=== PATIENT | male | born 1960 | race African-American/Black ===

== ENCOUNTER 2021-12-20 22:30 | Inpatient (IN) | payer MEDICAID ==
[~2021-12-20] VITALS: Ht 170.2 cm; Wt 67.6 kg
--- NOTE | 2021-12-20 22:31 | NUR ---
BIBA TAKEN TO BED #9
[2021-12-20 22:34] VITALS: BP 180/101
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
--- NOTE | 2021-12-20 23:05 | NUR ---
ER MD AT BEDSIDE EXAMINING PT
--- NOTE | 2021-12-20 23:09 | NUR ---
TANK CAR LOADER AT BEDSIDE
--- NOTE | 2021-12-20 23:10 | NUR ---
PT TAKEN TO CT
[2021-12-20 23:14] LABS: BASOPHILS # (AUTO) 0.1 K/uL (0.00-0.22); BASOPHILS % (AUTO) 0.3 % (0.0-2.0); EOSINOPHILS % (AUTO) 0.3 % (0.0-4.0); HEMATOCRIT 38.3 % (36-52); HEMOGLOBIN 12.3 g/dL (12.0-18.0); LYMPHOCYTES # (AUTO) 1.4 K/uL (2.0-11.5); LYMPHOCYTES % (AUTO) 9.1 % (20.5-51.1); MEAN CORPUSCULAR HEMOGLOBIN 25 pg (27-31); MEAN CORPUSCULAR HGB CONC 32 g/dL (33-37); MEAN CORPUSCULAR VOLUME 78.7 fL (80-94); MONOCYTES # (AUTO) 1.4 K/uL (0.8-1.0); MONOCYTES % (AUTO) 9.2 % (1.7-9.3); NEUTROPHILS # (AUTO) 12.5 K/uL (1.8-7.7); NEUTROPHILS % (AUTO) 81.1 % (42.2-75.2); PLATELET COUNT (AUTO) 206 K/uL (140-450); RED BLOOD CELL COUNT(AUTO) 4.86 MIL/uL (4.20-6.10); RED CELL DISTRIBUTION WIDTH 16.5 % (11.6-13.7); WHITE BLOOD COUNT (AUTO) 15.4 K/uL (4.8-10.8)
[2021-12-20 23:41] LABS: CHLORIDE 106 mmol/L (98-107); POTASSIUM 4.7 mmol/L (3.5-5.1); SODIUM SERUM 144 mmol/L (136-145)
[2021-12-20 23:57] LABS: ALBUMIN 4.1 g/dL (3.4-5.0); ANION GAP 15.9 (8-16); ASPARTATE AMINOTRANSFERASE 41 U/L (15-37); CARBON DIOXIDE 27.8 mmol/L (21-32); CREATININE 1.8 mg/dL (0.6-1.3); GFR ARICAN-AMERICAN 49 mL/min (>90); GLUCOSE 159 mg/dL (74-106); TOTAL BILIRUBIN 0.8 mg/dL (0.0-1.0); UREA NITROGEN, BLOOD 43 mg/dL (7-18)
[2021-12-21] MEDS ORDERED: NACL 0.9% 1,000 ML IV ONE ×2 (00:25→01:00)
[2021-12-21] MEDS ORDERED: PIPERACILLIN/TAZOBACTAM 3.375 GM in DEXTROSE 5% 50 ML IV ONE (01:00)
[2021-12-21] MEDS ORDERED: VANCOMYCIN 1,000 MG in DEXTROSE 5% 250 ML IV ONE (01:00)
--- NOTE | 2021-12-21 01:17 | NUR ---
PUT ON CONDOM CATHETER AND SWABBED FOR RAYO COVID. TAKEN TO LAB
[2021-12-21] MEDS ORDERED: PIPERACILLIN/TAZOBACTAM 3.375 GM VIAL IV ONE (01:22)
--- NOTE | 2021-12-21 01:39 | NUR ---
PT REFUSES TO TALK AND ONLY NODS HIS HEAD WHEN SPOKEN TO. IT IS UNCLEAR IF PT IS REFUSING TO TALK OR IS UNABLE TO COMPREHEND. UNABLE TO OBTAIN ACCURATE MED REC. PT IS SITTING QUIETLY IN BED WITH IV FLUIDS RUNNING AT THIS TIME.
[2021-12-21] MEDS ORDERED: VANCOMYCIN 1,000 MG VIAL ONE (01:42)
--- NOTE | 2021-12-21 02:03 | NUR ---
UNIX MANAGER AT BEDSIDE DRAWING BLOOD
[2021-12-21 02:25] VITALS: BP 179/81
[2021-12-21] MEDS ORDERED: hydrALAZINE 20 MG/ML VIAL IVP ONE (02:30)
--- NOTE | 2021-12-21 02:30 | NUR ---
RECEIVED BEDSIDE ENDORSEMENT FROM ER NURSE JADIEL. PT AWAKE, NON VERBAL. ABLE TO NOD WHEN ASKED SOME QUESTIONS. ON ROOM AIR, BREATHING EQUAL AND UNLABORED. NO RESPIRATORY DISTRESS NOTED. IV ON L HAND G 22, INFUSING VANCOMYCIN. SR 87 ON TELE . MRSA SWAB DONE. PT CLEANED AND CHANGED. FALL PRECAUTIONS IN PLACE.CALL LIGHT WITHIN REACH. WILL CONTINUE TO MONITOR.
--- NOTE | 2021-12-21 03:00 | NUR ---
Patient will be admitted to care of DR ORO. Admited to TELE. Will go to room 112A. Belongings list completed. Report to FREDERIC CHAO.
--- NOTE | 2021-12-21 03:10 | NUR ---
BP WAS 179/81. PRN HYDRALAZINE 10MG GIVEN. WILL CONTINUE TO MONITOR.
[2021-12-21] MEDS ORDERED: hydrALAZINE 20 MG/ML VIAL IVP PRN (03:30)
[2021-12-21] MEDS ORDERED: ACETAMINOPHEN 325 MG TAB PO PRN (03:45)
[2021-12-21] MEDS ORDERED: ONDANSETRON 4 MG/2 ML VIAL IVP PRN (03:45)
[2021-12-21] MEDS ORDERED: amLODIPine 5 MG TAB PO SCH ×2 (03:50→09:00)
[2021-12-21] MEDS: NACL 0.9% 1,000 ML IV SCH ×2 (04:13→16:47)
--- NOTE | 2021-12-21 05:35 | NUR ---
PT VOMITING.PRN ZOFRAN GIVEN. NO ACUTE DRUG REACTION NOTED. PT TOLERATED WELL. WILL CONTINUE TO MONITOR.
--- NOTE | 2021-12-21 06:46 | NUR ---
PT IS STABLE. NO ACUTE EVENTS THROUGHOUT THE NIGHT. ALL NEEDS MET.NO S/SX OF DISTRESS NOTED.DENIES PAIN. ALL PRECAUTIONS IN PLACE. CALL LIGHT WITHIN REACH. WILL ENDORSE TO AM SHIFT NURSE.
--- NOTE | 2021-12-21 07:30 | NUR ---
RECEIVED BEDSIDE REPORT FROM SALVATIONIST NURSE FOR CONTINUOUS OF CARE, PT AWAKE ALERT, DELAYED IN SPEECH, PT ON ROOM AIR, NO SOB NOTED, IV TO LEFT HAND 22G PATENT INTACT, INFUSING NS @ 70ML/HR, INFUSING WELL, INITIAL ASSESSMENT DONE, ALL SAFETY PRECAUTION MET, CALL LIGHT WITHIN REACH, WILL CONTINUE TO MONITOR.
[2021-12-21 08:00] VITALS: BP 105/69
[2021-12-21] MEDS ORDERED: HYDROcodone/APAP 7.5/325 MG 1 TAB PO PRN (08:15)
[2021-12-21] MEDS ORDERED: DOCUSATE SODIUM 100 MG GELCAP PO PRN (08:15)
[2021-12-21] MEDS ORDERED: guaiFENesin DM 200/20 MG-10 ML 10 ML UDC PO PRN (08:15)
[2021-12-21] MEDS ORDERED: POTASSIUM CHLORIDE 10 MEQ TABER PO PRN (08:15)
[2021-12-21] MEDS ORDERED: ZOLPIDEM 5 MG TAB PO PRN (08:15)
[2021-12-21] MEDS ORDERED: MECLIZINE 25 MG TAB PO PRN (08:20)
--- NOTE | 2021-12-21 08:54 | NUR ---
PATIENT HAS BEEN SCREENED AND CATEGORIZED LOW NUTRITION RISK. PATIENT WILL BE SEEN WITHIN 7 DAYS OF ADMISSION. 12/27/[address]
[2021-12-21] MEDS ORDERED: DEXTROSE 50% 50 ML SYR IVP PRN ×2 (09:05→09:10)
[2021-12-21] MEDS: NIFEdipine 30 MG TABER PO SCH (09:05)
[2021-12-21] MEDS ORDERED: INSULIN LISPRO SLIDING SCALE 100 UNITS/ML VIAL SUBQ PRN (09:05)
[2021-12-21] MEDS ORDERED: ONDANSETRON 4 MG/2 ML VIAL IM/IVP PRN (09:15)
[2021-12-21] MEDS: METOPROLOL 25 MG TAB PO SCH ×2 (09:15→18:38)
[2021-12-21] MEDS: PANTOPRAZOLE 40 MG TABEC PO SCH (09:18)
--- NOTE | 2021-12-21 09:18 | NUR ---
DUE MEDICATIONS ADMINISTERED, PT BP CURRENTLY 105/69, WILL HOLD BP MEDICATIONS FOR NOW. WILL CONTINUE TO MONITOR.
[2021-12-21 09:40] LABS: PROTHROMBIN TIME 10.1 secs (10.8-13.4)
[2021-12-21 09:56] LABS: CHOL/HDL RATIO 2.8 (1-4.5); FREE T4 (FREE THYROXINE) 1.03 ng/dL (0.76-1.46); MAGNESIUM 2.1 mg/dL (1.8-2.4); PHOSPHORUS 3.7 mg/dL (2.5-4.9); THYROID STIMULATING HORMONE 0.95 uIU/mL (0.34-3.74)
[2021-12-21 10:17] LABS: APPEARANCE,URINE CLEAR (CLEAR); BILIRUBIN,URINE NEGATIVE (NEGATIVE); BLOOD, URINE 1+ (NEGATIVE); COLOR,URINE YELLOW (YELLOW); LEUKOCYTE ESTERASE ,URINE TRACE (NEGATIVE); NITRITE, URINE POSITIVE (NEGATIVE); UGLUCOSE TRACE (NEGATIVE)
[2021-12-21 10:32] LABS: BARBITURATE, URINE NEGATIVE ng/ml (NEG <=200)
[2021-12-21 10:33] LABS: BENZODIAZEPINE, URINE NEGATIVE ng/mL (NEG <=200); CANNABINOID, URINE NEGATIVE ng/mL (NEG <=50); COCAINE, URINE NEGATIVE ng/mL (NEG <=300); OPIATE, URINE NEGATIVE ng/mL (NEG <=2000); PHENCYCLIDINE SCREEN,URINE NEGATIVE ng/mL (NEG <=25)
[2021-12-21 10:49] LABS: RBC,URINE 0-5 /HPF (0-5); WBC,URINE 0-5 /HPF (0-5)
[2021-12-21 10:50] LABS: OTHER CASTS, URINE None Seen /LPF (None Seen)
--- NOTE | 2021-12-21 11:00 | NUR ---
SCREEN FOR LOW MILADY SCALE AT RISK, CONTINUE TO FOLLOW PRESSURE ULCER PREVENTION INTERVENTIONS. -TURN AND REPOSITION PATIENT Q 2H, ASSIST IF NEEDED -ASSESS AND MONITOR SKIN CONDITION DURING POSITION CHANGES -OFFLOAD BILATERAL HEELS BY PLACING PILLOWS UNDER CALVES AT ALL TIMES, UNLESS OTHERWISE CONTRAINDICATED -PRESSURE REDISTRIBUTION BY PLACING PILLOWS AND OFFLOADING SACRALCOCCYX -KEEP SKIN CLEAN AND DRY AT ALL TIMES.
[2021-12-21] MEDS ORDERED: BLOOD GLUCOSE MONITORING 1 DEV DEV FS SCH (11:30)
[2021-12-21] MEDS: BLOOD GLUCOSE MONITORING 1 DEV DEV FS SCH ×3 (11:36→21:00)
[2021-12-21] MEDS: INSULIN LISPRO SLIDING SCALE 100 UNITS/ML VIAL SUBQ PRN ×3 (11:38→22:07)
[2021-12-21 12:00] VITALS: BP 175/99
[2021-12-21] MEDS: hydrALAZINE 20 MG/ML VIAL IVP PRN (12:32)
--- NOTE | 2021-12-21 12:32 | NUR ---
PT BP 175/99, PRN HYDRALAZINE GIVEN PER DR ORDERS, WILL CONTINUE TO MONITOR.
--- NOTE | 2021-12-21 15:27 | NUR ---
DC PLANNING: THE PATIENT WAS BIBA AFTER HAVING A WITNESSED FALL. PATIENT IS EASILY DISTRACTED, DIFFICULT TO OBTAIN HISTORY, ORIENTED TO PERSON AND PLACE. H/O HTN, DM AND CVA. WBC'S 15.4, CXR SHOWS LEFT BASILAR ATELECTASIS, B/P 180/101, GIVEN HYDRALAZINE. BUN 43, CR 1.8, GIVEN NS BOLUS AND STARTED ON ROCEPHIN IV AND IVF'S. CM AND SW SPOKE WITH THE PATIENTS MOTHER AT BEDSIDE. THE PATIENT HAS BEEN MISSING FOR THREE DAYS, WAS STAYING WITH A CAREGIVER WHILE HIS MOTHER WENT TO A WORKSHOP IN [place] AND LEFT THE HOUSE. HE WAS ABLE TO TAKE A BUS BUT IT IS UNCLEAR WHERE HE GOT OFF. THE POLICE HAVE BEEN LOOKING FOR HIM SINCE TUESDAY WHICH IS HOW HIS MOTHER FOUND HIM HERE. HIS MOTHER IS JEAN ROBERTO, HOME PHONE [phone], CELL PHONE [phone]. THE PATIENT LIVES WITH HER IN A SINGLE STORY HOUSE IN [place] AND SHE IS HIS IHSS WORKER WITH 128 HRS/MONTH. SHE HAS A FRIEND WHO ASSISTS HER NEEDED, THE PATIENT WAS STAYING WITH HER WHEN HE LEFT [place]. 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 HE WAS TREATED FOR THIS AT [facility] IN [place]. HE IS A ABLE TO WALK, SLOWLY, AND IS INDEPENDENT WITH ADL'S AND EATING. HE IS ACTIVE AND ASSISTS HIS MOTHER WITH SOME CHORES. HE IS VERBAL BUT DOES NOT TALK A LOT. HE IS DIABETIC AND HAS A GLUCOMETER, HIS MOTHER GIVES HIS INSULIN AND HE TAKES PO MEDICATIONS WELL. HE ALSO HAS A FWW BUT DOES NOT USE IT REGULARLY. HE SEES HIS PMD REGULARLY AND HAS BEEN REFERRED TO A IMPLEMENTATION PROJECT MANAGER FOR [facility] BY HIS PMD. HIS MOTHER WILL TRANSPORT HIM HOME WHEN HE IS CLINICALLY STABLE, NO DC NEEDS IDENTIFIED. CM WILL FOLLOW.
[2021-12-21 16:00] VITALS: BP 181/88
[2021-12-21 16:32] LABS: BARBITURATE, URINE NEGATIVE ng/ml (NEG <=200); BENZODIAZEPINE, URINE NEGATIVE ng/mL (NEG <=200); CANNABINOID, URINE NEGATIVE ng/mL (NEG <=50); COCAINE, URINE NEGATIVE ng/mL (NEG <=300); OPIATE, URINE NEGATIVE ng/mL (NEG <=2000); PHENCYCLIDINE SCREEN,URINE NEGATIVE ng/mL (NEG <=25)
--- NOTE | 2021-12-21 16:57 | NUR ---
NOTIFY DR SIGALA PT BP IS HIGH 182/76, PRN MEDICATION IS NOT DUE YET, HYDRALAZINE 10MG. PER DR SIGALA TO ORDER HYDRALAZINE IVP 10MG, TO GIVE ONE TIME RIGHT NOW. WILL CONTINUE WITH ORDERS.
[2021-12-21] MEDS ORDERED: hydrALAZINE 20 MG/ML VIAL IVP SCH (17:00)
--- NOTE | 2021-12-21 17:47 | NUR ---
P.T. NOTES P.T. EVAL COMPLETED; REFER TO EVAL FOR DETAILS.
[2021-12-21] MEDS: hydrALAZINE 10 MG TAB PO SCH (18:38)
--- NOTE | 2021-12-21 18:38 | NUR ---
NOTIFIED DR SIGALA REGARDING PT BP STILL HIGH IN 180S, LAST ONE WAS 188/88, PER DR SIGALA TO ORDER HYDRALAZINE TID 10MG PO AND ALSO GIVE PT NIGHT MEDICATION METOPROLOL EARLY. WILL CONTINUE WITH ORDERS.
--- NOTE | 2021-12-21 19:19 | NUR ---
ENDORSED PT TO SALES AND MARKETING MANAGER NURSE FOR CONTINUOUS OF CARE.
--- NOTE | 2021-12-21 19:30 | NUR ---
RECEIVED BEDSIDE REPORT FROM DAY SHIFT RN FOR CONTINUITY OF CARE. PT IS AWAKE WITH MOM BY BEDSIDE. PT IS ON RA NOT IN ANY DISTRESS. PT HAS HAND 22 GAUGE WITH NS 50 CC/HR. CALL LIGHT WITHIN REACH. ALL SAFETY MEASURES TAKEN. WILL CONTINUE TO MONITOR THE PT.
[2021-12-21 20:00] VITALS: BP 145/81
--- NOTE | 2021-12-21 21:35 | NUR ---
PT IS SLEEPING IN BED COMFORTABLY. PT IS NOT IN ANY ACUTE DISTRESS. BREATHING EVEN AND UNLABORED. IVF RUNNING PER MD ORDER. CALL LIGHT WITHIN REACH. ALL SAFETY MEASURES TAKEN. WILL CONTINUE TO MONITOR THE PT.
[2021-12-22] VITALS: BP 168/82
[2021-12-22] MEDS: hydrALAZINE 20 MG/ML VIAL IVP PRN (01:34)
--- NOTE | 2021-12-22 02:37 | NUR ---
PT WAS GIVEN HYDRALAZINE FOR HIGH BLOOD PRESSURE OF 181/102 WITH HR OF 84. REASSESSED BP AND WENT DOWN TO 158/95. HR 89. WILL CONTINUE TO MONITOR THE PT.
[2021-12-22 04:00] VITALS: BP 158/80
--- NOTE | 2021-12-22 04:00 | NUR ---
PT CURRENT BLOOD PRESSURE IS 158/80, HR OF 89. PT IS NOT IN ANY DISTRESS. BREATHING EVEN AND UNLABORED. IVF RUNNING PER MD ORDER. CALL LIGHT WITHIN REACH. WILL CONTINUE TO MONITOR THE PT.
[2021-12-22] MEDS: INSULIN LISPRO SLIDING SCALE 100 UNITS/ML VIAL SUBQ PRN ×3 (06:32→20:23)
[2021-12-22] MEDS: BLOOD GLUCOSE MONITORING 1 DEV DEV FS SCH ×4 (06:32→20:22)
[2021-12-22] MEDS: NIFEdipine 30 MG TABER PO SCH (06:45)
[2021-12-22] MEDS: METOPROLOL 25 MG TAB PO SCH (06:46)
[2021-12-22] MEDS: hydrALAZINE 10 MG TAB PO SCH ×3 (06:46→17:05)
[2021-12-22 06:48] LABS: BASOPHILS % (AUTO) 0.2 % (0.0-2.0); EOSINOPHILS % (AUTO) 0.1 % (0.0-4.0); HEMATOCRIT 37.8 % (36-52); HEMOGLOBIN 12.4 g/dL (12.0-18.0); LYMPHOCYTES % (AUTO) 14.8 % (20.5-51.1); MEAN CORPUSCULAR HEMOGLOBIN 26 pg (27-31); MEAN CORPUSCULAR HGB CONC 33 g/dL (33-37); MEAN CORPUSCULAR VOLUME 78.3 fL (80-94); MONOCYTES # (AUTO) 0.9 K/uL (0.8-1.0); MONOCYTES % (AUTO) 6.8 % (1.7-9.3); NEUTROPHILS # (AUTO) 10.5 K/uL (1.8-7.7); NEUTROPHILS % (AUTO) 78.1 % (42.2-75.2); PLATELET COUNT (AUTO) 196 K/uL (140-450); RED BLOOD CELL COUNT(AUTO) 4.83 MIL/uL (4.20-6.10); RED CELL DISTRIBUTION WIDTH 16.2 % (11.6-13.7); WHITE BLOOD COUNT (AUTO) 13.4 K/uL (4.8-10.8)
--- NOTE | 2021-12-22 06:49 | NUR ---
PT BLOOD PRESSURE WAS GOING UP AGAIN TO 180'S. MESSAGED DR. SIGALA. DOCTOR SAID TO GIVE MORNING BP MEDICATIONS. ALL MORNING BP MEDICATIONS WERE GIVEN. WILL CONTINUE TO MONITOR THE PT.
[2021-12-22 06:57] LABS: ANION GAP 11.3 (8-16); CARBON DIOXIDE 28.4 mmol/L (21-32); CREATININE 1.3 mg/dL (0.6-1.3); POTASSIUM 3.7 mmol/L (3.5-5.1)
[2021-12-22 07:08] LABS: T4 (THYROXINE) 7.5 ug/dL (4.5-12.0)
--- NOTE | 2021-12-22 07:10 | NUR ---
RECEIVED REPORT FROM CHANGE MANAGEMENT SPECIALIST NURSE FOR CONTINUITY OF CARE. PT ASLEEP IN BED BUT EASILY AROUSABLE AND AWAKEN, A/OX1. BREATHING SYMMETRICAL ON ROOM AIR. PER REPORT PT UNABLE TO AMBULATE BY HIMSELF AND WITH EPISODES OF COUGH. AM BP MEDS WERE GIVEN ALREADY BY CHANGE MANAGEMENT SPECIALIST NURSE DUE TO ELEVATED BP. PER REPORT BP TENDS TO BE HIGH. FLACC O. LEFT HAND 22G WITH NS AT 50CC/HR. CALL LIGHT WITHIN REACH. BED ON LOW POSITION, BRAKES ON. ALL SAFETY MEASURES IN PLACE.
--- NOTE | 2021-12-22 07:21 | NUR ---
ENDORSED PT TO DAY SHIFT RN FOR CONTINUITY OF CARE. PT IS STABLE.
[2021-12-22 08:00] VITALS: BP 117/57
[2021-12-22] MEDS: PANTOPRAZOLE 40 MG TABEC PO SCH (08:33)
--- NOTE | 2021-12-22 08:33 | NUR ---
SCHEDULED AM MEDICATION GIVEN ORDERED.
--- NOTE | 2021-12-22 10:22 | NUR ---
PT GETTING ECHO DONE AT BEDSIDE
--- NOTE | 2021-12-22 11:53 | NUR ---
ACCUCHECK DONE, INSULIN GIVEN PER SLIDING SCALE. PT ALSO SEEN BY DR NICOLE (SALES FLOOR ASSOCIATE). PT ABLE TO ANSWER SOME QUESTIONS, PT NOT CONVERSING JUST MOSTLY NODDING AND ANSWERS WITH ONE WORD.
[2021-12-22 12:00] VITALS: BP 129/87
--- NOTE | 2021-12-22 14:35 | NUR ---
PATIENT WALKING AROUND THE HALLWAY USING WALKER WITH PHYSICAL THERAPIST.
--- NOTE | 2021-12-22 14:41 | NUR ---
PT'S MOM AT BEDSIDE VISITING.
--- NOTE | 2021-12-22 15:23 | NUR ---
PT TRANSFERRED TO [facility]
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
[2021-12-22 16:00] VITALS: BP 122/77
--- NOTE | 2021-12-22 16:25 | NUR ---
PHYSICAL THERAPY CO-SIGN The Physical Therapy Progress Notes documented by Handy Man have been reviewed. Reviewed/Co-Signed by: Ivory Orta Documentation Done by: DANY BERNAL PTA Addendum: 12/22/21 at 1625 by Ivory Orta PT Amended: Links added.
--- NOTE | 2021-12-22 17:00 | NUR ---
NOTED PT WITH ELEVATED TEMP, PRN TYLENOL GIVEN AND ICE PACKS APPLIED. MOM AT BEDSIDE AND AWARE, WILL CONTINUE TO MONITOR
[2021-12-22] MEDS: ACETAMINOPHEN 325 MG TAB PO PRN (17:05)
--- NOTE | 2021-12-22 17:55 | NUR ---
RE-ASSESSED PT'S TEMP WENT DOWN TO 99.5 WILL CONTINUE TO PROVIDE ICE PACKS AND COOLING MEASURES
--- NOTE | 2021-12-22 18:38 | NUR ---
PT'S TEMP WENT DOWN TO 98.8, MOM STILL AT BEDSIDE AND AWARE. PT ATE 100% OF DINNER SERVED. DENIES PAIN
--- NOTE | 2021-12-22 19:32 | NUR ---
ENDORSED PT TO SWIMMING INSTRUCTOR NURSE, IN STABLE CONDITION
[2021-12-22] MEDS: METOPROLOL 50 MG TAB PO SCH (20:16)
--- NOTE | 2021-12-22 20:16 | NUR ---
ADMINISTERED SCHEDULED MEDICATION. WELL TOLERATED.
--- NOTE | 2021-12-22 20:22 | NUR ---
BLOOD SUGAR WAS 191, ADMINISTERED HUMALOG INSULIN ORDERED PER SLIDING SCALE.
[2021-12-23] VITALS: BP 142/70
--- NOTE | 2021-12-23 02:27 | NUR ---
MADE ROUNDS. PT ASLEEP. NO SOB NOTED. CALL LIGHT WITHIN REACH.
[2021-12-23] MEDS: BLOOD GLUCOSE MONITORING 1 DEV DEV FS SCH ×4 (06:33→20:30)
[2021-12-23] MEDS: INSULIN LISPRO SLIDING SCALE 100 UNITS/ML VIAL SUBQ PRN (06:34)
[2021-12-23 07:06] LABS: ANION GAP 9.9 (8-16); CREATININE 1.3 mg/dL (0.6-1.3); POTASSIUM 3.9 mmol/L (3.5-5.1)
[2021-12-23 07:08] LABS: BASOPHILS % (AUTO) 0.2 % (0.0-2.0); EOSINOPHILS % (AUTO) 0.3 % (0.0-4.0); HEMATOCRIT 38.8 % (36-52); HEMOGLOBIN 12.9 g/dL (12.0-18.0); LYMPHOCYTES % (AUTO) 23.3 % (20.5-51.1); MEAN CORPUSCULAR HEMOGLOBIN 26 pg (27-31); MEAN CORPUSCULAR HGB CONC 33 g/dL (33-37); MEAN CORPUSCULAR VOLUME 77.8 fL (80-94); MONOCYTES # (AUTO) 0.8 K/uL (0.8-1.0); MONOCYTES % (AUTO) 9.5 % (1.7-9.3); NEUTROPHILS # (AUTO) 5.7 K/uL (1.8-7.7); NEUTROPHILS % (AUTO) 66.7 % (42.2-75.2); PLATELET COUNT (AUTO) 203 K/uL (140-450); RED BLOOD CELL COUNT(AUTO) 4.99 MIL/uL (4.20-6.10); RED CELL DISTRIBUTION WIDTH 15.9 % (11.6-13.7); WHITE BLOOD COUNT (AUTO) 8.6 K/uL (4.8-10.8)
--- NOTE | 2021-12-23 07:10 | NUR ---
PATIENT IS STABLE. ENDORSED TO AM NURSE FOR CONTINUITY OF CARE.
--- NOTE | 2021-12-23 07:15 | NUR ---
RECEIVED REPORT FROM BOAT CANVAS INSTALLER NURSE FOR CONTINUITY OF CARE. PT ASLEEP IN BED. BREATHING SYMMETRICAL ON ROOM AIR. FLACC O. PER REPORT NO FEVER DURING THE NIGHT. LEFT HAND 22G ON SALINE LOCK. CALL LIGHT WITHIN REACH. ALL SAFETY MEASURES IN PLACE.
[2021-12-23 08:00] VITALS: BP 192/93
--- NOTE | 2021-12-23 08:00 | NUR ---
NOTED PT'S BP ELEVATED 192/93, ALSO TEMP IS 100. DR ISLAS DOING ROUNDS AND MADE AWARE. SCHEDULED AM BP MEDS GIVEN, PRN TYLENOL ALSO GIVEN. ICE PACKS APPLIED AND ORAL FLUIDS GIVEN AND ENCOURAGED. PT DENIES PAIN. WILL CONTINUE TO MONITOR.
[2021-12-23] MEDS: PANTOPRAZOLE 40 MG TABEC PO SCH (08:27)
[2021-12-23] MEDS: ACETAMINOPHEN 325 MG TAB PO PRN (08:27)
[2021-12-23] MEDS: hydrALAZINE 10 MG TAB PO SCH (08:27)
[2021-12-23] MEDS: METOPROLOL 50 MG TAB PO SCH ×2 (08:27→20:30)
[2021-12-23] MEDS ORDERED: NIFEdipine 60 MG TABER PO SCH (09:00)
--- NOTE | 2021-12-23 09:00 | NUR ---
PT'S BLOOD PRESSURE WENT DOWN TO 113/64. PT DENIES ANY PAIN. WILL CONTINUE TO MONITOR
--- NOTE | 2021-12-23 10:04 | NUR ---
PHYSICAL THERAPY CO-SIGN The Physical Therapy Progress Notes documented by Conservation Enforcement Officer have been reviewed. Reviewed/Co-Signed by: Ivory Orta Documentation Done by: DANY BERNAL PTA Addendum: 12/23/21 at 1004 by Ivory Orta PT Amended: Links added.
--- NOTE | 2021-12-23 10:15 | NUR ---
RE-ASSESSED PT'S TEMPERATURE WENT DOWN TO 98.8. PT'S MOM JEAN ALSO CALLED AND MADE AWARE. ENCOURAGED ORAL FLUID INTAKE. CONTINUES TO DENY PAIN. WILL CONTINUE TO MONITOR
--- NOTE | 2021-12-23 12:00 | NUR ---
PT REFUSED SLIDING SCALE INSULIN COVERAGE, PT'S BLOOD SUGAR IS 256 WITH 6U COVERAGE. EXPLAINED RISKS AND BENEFITS BUT STILL REFUSED
--- NOTE | 2021-12-23 12:30 | NUR ---
ASSISTED PT WITH LUNCH. DENIES PAIN. ENCOURAGED TO CALL FOR ASSISTANCE.
--- NOTE | 2021-12-23 15:55 | NUR ---
PT ASLEEP IN BED. BREATHING SYMMETRICAL ON ROOM AIR. FLACC O. CALL LIGHT WITHIN REACH.
[2021-12-23 16:00] VITALS: BP 149/89
--- NOTE | 2021-12-23 18:43 | NUR ---
PT TRANSFERRED TO TELEMETRY
--- NOTE | 2021-12-23 19:30 | NUR ---
ENDORSED PT TO SIDE STITCHING MACHINE OPERATOR NURSE FOR CONTINUITY OF CARE.
--- NOTE | 2021-12-23 19:42 | NUR ---
RECEIVED BEDSIDE REPORT FROM AM SHIFT NURSE FOR CONTINUITY OF CARE. PT AWAKE, ALERT.DELAYED IN SPEECH. PT ON ROOM AIR, NO RESPIRATORY DISTRESS NOTED, IV TO LEFT HAND 22G ON SL. ALL SAFETY PRECAUTIONS IN PLACE, CALL LIGHT WITHIN REACH, WILL CONTINUE TO MONITOR.
[2021-12-23 20:00] VITALS: BP 152/74
--- NOTE | 2021-12-23 20:45 | NUR ---
PT TRYING TO GET OUT OF BED AND WANTS TO GO HOME. HE IS REMOVING HIS CLOTHES AND TELE MONITOR.PT SPOKE TO MOM AND STILL INSISTING T GO HOME AND TRYING TO GET OUT OF BED.INFORMED AND ORDERED 5MG HALDOL IM ONCE.
--- NOTE | 2021-12-23 20:50 | NUR ---
HALDOL IM ON HOLD PT CALMED DOWN ALREADY AND RESTING ON BED.
--- NOTE | 2021-12-23 21:00 | NUR ---
SCHEDULED MEDICATIONS GIVEN.BLOOD SUGAR WAS 178.PT REFUSED INSULIN COVERAGE. WILL TRY TO GIVE AGAIN LATER.
[2021-12-24] VITALS: BP 146/66
--- NOTE | 2021-12-24 02:45 | NUR ---
PT RESTING IN BED COMFORTABLY. PT IS NOT IN ANY ACUTE DISTRESS. BREATHING EVEN AND UNLABORED.BP CHECKED IT WAS 146/66. CALL LIGHT WITHIN REACH. ALL SAFETY MEASURES TAKEN. WILL CONTINUE TO MONITOR THE PT.
[2021-12-24 04:00] VITALS: BP 165/75
[2021-12-24] MEDS: hydrALAZINE 20 MG/ML VIAL IVP PRN ×2 (04:18→08:38)
--- NOTE | 2021-12-24 04:30 | NUR ---
PT'S BP 175/75. PRN BP MEDICATION GIVEN. WILL REASSESS AFTER 1 HOUR.
--- NOTE | 2021-12-24 05:29 | NUR ---
REASSESSED PT'S BP. WENT DOWN TO 152/58. ALL PRECAUTIONS IN PLACE. WILL CONTINUE TO MONITOR.
[2021-12-24] MEDS: BLOOD GLUCOSE MONITORING 1 DEV DEV FS SCH ×2 (06:24→11:33)
[2021-12-24 06:53] LABS: ANION GAP 12.7 (8-16); CREATININE 1.3 mg/dL (0.6-1.3); POTASSIUM 3.7 mmol/L (3.5-5.1)
[2021-12-24 07:12] LABS: BASOPHILS % (AUTO) 0.3 % (0.0-2.0); EOSINOPHILS # (AUTO) 0.1 K/uL (0-0.4); EOSINOPHILS % (AUTO) 0.6 % (0.0-4.0); HEMATOCRIT 38.9 % (36-52); HEMOGLOBIN 12.8 g/dL (12.0-18.0); LYMPHOCYTES # (AUTO) 2.7 K/uL (2.0-11.5); LYMPHOCYTES % (AUTO) 26.4 % (20.5-51.1); MEAN CORPUSCULAR HEMOGLOBIN 26 pg (27-31); MEAN CORPUSCULAR HGB CONC 33 g/dL (33-37); MEAN CORPUSCULAR VOLUME 77.6 fL (80-94); MONOCYTES # (AUTO) 0.9 K/uL (0.8-1.0); MONOCYTES % (AUTO) 8.8 % (1.7-9.3); NEUTROPHILS # (AUTO) 6.6 K/uL (1.8-7.7); NEUTROPHILS % (AUTO) 63.9 % (42.2-75.2); PLATELET COUNT (AUTO) 214 K/uL (140-450); RED BLOOD CELL COUNT(AUTO) 5.02 MIL/uL (4.20-6.10); RED CELL DISTRIBUTION WIDTH 15.5 % (11.6-13.7); WHITE BLOOD COUNT (AUTO) 10.4 K/uL (4.8-10.8)
--- NOTE | 2021-12-24 07:15 | NUR ---
RECEIVED REPORT FROM MORNING SHIFT NURSE FOR CONTINUITY OF CARE. PT IS SLEEPING, EASILY AROUSABLE BY VERBAL STIMULI. BREATHING EVEN AND UNLABORED AT ROOM AIR. PT ON TELE MONITOR. IV SITE AT LEFT HAND 22G, SALINE LOCK. SKIN IS INTACT, WARM AND DRY TO TOUCH. CALL LIGHT WITHIN REACH. SAFETY MEASURES IN PLACE. WILL CONTINUE TO MONITOR.
[2021-12-24] MEDS ORDERED: AZITHROMYCIN 250 MG TAB PO SCH (07:45)
[2021-12-24 08:00] VITALS: BP 170/78
--- NOTE | 2021-12-24 08:00 | NUR ---
PT IN THE ROOM RESTING, COVERING MOP MAN ERIKA FOR IV MEDS.[id number]
[2021-12-24] MEDS: PANTOPRAZOLE 40 MG TABEC PO SCH (08:23)
[2021-12-24] MEDS: METOPROLOL 50 MG TAB PO SCH (08:23)
--- NOTE | 2021-12-24 08:30 | NUR ---
ADMINISTERED SCHEDULED MORNING MEDS. EXPLAIN MEDS TO PT. PT VERBALIZED UNDERSTANDING. PT SBP IS AT 170'S. INFORMED RN. RN WILL ADMINISTER PRN BP MED ORDERED.
[2021-12-24] MEDS ORDERED: NIFEdipine 60 MG TABER PO SCH (09:00)
--- NOTE | 2021-12-24 09:38 | NUR ---
REASSESSED V/S BP 131/67, 73BPM. PT LYING IN BED. NO SIGNS OF DISTRESS NOTED. NO ADVERSE REACTION TO MEDS. CALL LIGHT WITHIN REACH. SAFETY MEASURES IN PLACE. WILL CONTINUE TO MONITOR.
--- NOTE | 2021-12-24 10:57 | NUR ---
DOWNGRADED TO MS. CONTINUE BP CHECK EVERY 4HRS.
[2021-12-24] MEDS: INSULIN LISPRO SLIDING SCALE 100 UNITS/ML VIAL SUBQ PRN (11:33)
--- NOTE | 2021-12-24 11:44 | NUR ---
BLOOD GLUCOSE CHECK DONE. BS 170. SLIDING SCALE INSULIN GIVEN ORDERED. PT TOLERATED WELL. LEFT PT WITH FAMILY MEMBER AT BEDSIDE. CALL LIGHT WITHIN REACH. SAFETY MEASURES IN PLACE.
[2021-12-24 12:00] VITALS: BP 164/82
[2021-12-24] MEDS ORDERED: lisinopriL 20 MG TAB PO SCH (12:20)
--- NOTE | 2021-12-24 12:30 | NUR ---
PT MOM AT BEDSIDE, REQUESTING FOR THE PT TO BE DISCHARGED. PT MOM STATED "I LIVE IN [place] AND IT'S TOO FAR FROM ME TO GO BACK AND FORTH HERE AT THIS HOSPITAL TO SEE HIM. I AM THE ONE WHO'S TAKING GOOD CARE OF HIM AT HOME. I MONITOR HIS BP AND BS, GAVE HIM MEDS, GAVE HIM INSULIN. HE HAS HIS PRIMARY DR NEAR OUR HOME. I WANT TO BRING HIM TO A HOSPITAL NEAR HOME." INFORMED CN, CM AND WILL FOLLOW-UP.
--- NOTE | 2021-12-24 14:30 | NUR ---
PT IN REST ROOM. PT ABLE TO AMBULATE FROM BED TO REST ROOM WITHOUT DISTRESS NOTED, STEADY GAIT. FAMILY MEMBER IN ROOM. SAFETY PRECAUTIONS MAINTAINED.
--- NOTE | 2021-12-24 15:23 | NUR ---
PHYSICAL THERAPY CO-SIGN The Physical Therapy Progress Notes documented by Agricultural Consultant have been reviewed. Reviewed/Co-Signed by: Ivory Orta Documentation Done by: DANY BERNAL PTA Addendum: 12/24/21 at 1523 by Ivory Orta PT Amended: Links added.
[2021-12-24] MEDS ORDERED: AMOX-1230 PO (15:31)
[2021-12-24] MEDS ORDERED: NIFE60TA39 PO (15:31)
[2021-12-24] MEDS ORDERED: METO50TA99 PO (15:31)
[2021-12-24] MEDS ORDERED: LISI20TA29 PO (15:31)
[2021-12-24] MEDS ORDERED: ATOR40TA40 PO (15:33)
[2021-12-24] MEDS ORDERED: ASPI-1822 PO (15:33)
[2021-12-24 16:00] VITALS: BP 133/58
--- NOTE | 2021-12-24 16:25 | NUR ---
PT D/C HOME WITH FAMILY MEMBER. DISCHARGE PAPER DISCUSSED TO THE PT, VERBALIZED UNDERSTANDING. PT WHEELED OUT TO FRONT LOBBY BY GROUT PUMP OPERATOR. REMOVED IV CATHETER IS INTACT. REMOVED WRIST BAND. ALL BELONGINGS TAKEN UPON DISCHARGE. PT IS STABLE.
== END 2021-12-24 16:25 | disposition home or self-care (01) | DRG 720 ==
LOC: MED 22:30 → MTU 12-21 01:57 → OBSVTOIN 12-21 12:37
PROVIDERS: ADMIT Student in an Organized Health Care Education/Training Program; ATTEND Student in an Organized Health Care Education/Training Program
DX: A41.9 Sepsis, unspecified organism (principal); N17.0 Acute kidney failure with tubular necrosis; J69.0 Pneumonitis due to inhalation of food and vomit; G93.41 Metabolic encephalopathy; I10 Essential (primary) hypertension; Z20.822 Contact with and (suspected) exposure to COVID-19; E11.9 Type 2 diabetes mellitus without complications; G31.84 Mild cognitive impairment of uncertain or unknown etiology; N39.0 Urinary tract infection, site not specified; E87.1 Hypo-osmolality and hyponatremia; Z86.73 Personal history of transient ischemic attack (TIA), and cerebral infarction without residual deficits
CPT/HCPCS: 36415; 70450; 71045; 76770; 80048; 80053; 80305; 81001; 82150; 82570; 82948; 83036; 83605; 83690; 83735; 83880; 84100; 84300; 84436; 84439; 84443; 84479; 84484; 85025; 85610; 85730; 87040; 87081; 87086; 87635-QW; 93005; 93880; 96361; 96365; 96366; 96368; 97110; 97112; 97116; 97530; 99291; G0482; J0360; J0696; J1815; J2405; J2543; J3370; J7030; J7060; Q0092